=== PATIENT | female | born 1935 | race Caucasian/White ===

== ENCOUNTER 2018-05-21 20:15 | Inpatient (IN) | payer OTHER ==
[2018-05-21] MEDS ORDERED: ONDANSETRON 4 MG/2 ML VIAL IVP ONE (20:37)
[2018-05-21] MEDS ORDERED: NS 1,000 ML IV ONE (20:37)
--- NOTE | 2018-05-21 21:04 | EDPHY ---
H & P Stated Complaint: pt fell 3 times due to weakness and now vomiting Time Seen by Provider: 05/21/18 20:31 HPI/ROS: CHIEF COMPLAINT: Weakness, fall, vomiting HISTORY OF PRESENT ILLNESS: The patient is an 82-year-old female with a history of Alzheimer's disease and multiple abdominal surgeries as well as seizure disorder and asthma. She complained last night that her head was buzzing but as soon as her daughter took her home and she had some food she felt better. However today she has felt weak and she fell backwards while walking down the ramp at home. They are not sure if she hit her head or not but since that she has vomited 3 times. She fell 1 other time out of her chair to the ground. Patient denies any pain or injury to her extremities or torso. She is retching here in the room. Daughter states that she has also had multiple urine infections in the past. The patient has been afebrile. No coughing or shortness of breath. She denies chest pain. She has been incontinent of urine as well. No neck pain. No headache Severity: Moderate Modifying factors: None REVIEW OF SYSTEMS: Constitutional: denies: chills, fever, recent illness, recent injury EENTM: denies: blurred vision, double vision, nose congestion Respiratory: denies: cough, shortness of breath Cardiac: denies: chest pain, irregular heart rate, lightheadedness, palpitations Gastrointestinal/Abdominal: See HPI Genitourinary: denies: dysuria, frequency, hematuria, pain Musculoskeletal: denies: joint pain, muscle pain Skin: denies: lesions, rash, jaundice, bruising Neurological: Generalized weakness, denies: headache, numbness, paresthesia, tingling, dizziness, weakness Hematologic/Lymphatic: denies: blood clots, easy bleeding, easy bruising Immunologic/allergic: denies: HIV/AIDS, transplant 10 systems reviewed and negative except as noted EXAM: GENERAL: Fatigue, moderate distress, retching, overweight HEAD: Atraumatic, normocephalic. EYES: Pupils equal round and reactive to light, extraocular movements intact, sclera anicteric, conjunctiva are normal. ENT: TMs normal, nares patent, oropharynx clear without exudates. Moist mucous membranes. NECK: Normal range of motion, supple without lymphadenopathy or JVD. LUNGS: Breath sounds clear to auscultation bilaterally and equal. No wheezes rales or rhonchi. HEART: Regular rate and rhythm without murmurs, rubs or gallops. ABDOMEN: Soft, nontender, normoactive bowel sounds. No guarding, no rebound. No masses appreciated. BACK: No CVA tenderness, no spinal tenderness, step-offs or deformities EXTREMITIES: Normal range of motion, no pitting or edema. No clubbing or cyanosis. NEUROLOGICAL: Cranial nerves II through XII grossly intact. Normal speech, normal gait. 5/5 strength, normal movement in all extremities, normal sensation , normal reflexes PSYCH: Normal mood, normal affect. SKIN: Warm, dry, normal turgor, no visible rashes or lesions. Source: Patient Exam Limitations: No limitations - Personal History Current Tetanus/Diphtheria Vaccine: Unsure Current Tetanus Diphtheria and Acellular Pertussis (TDAP): Unsure - Medical/Surgical History Hx Asthma: Yes Hx Chronic Respiratory Disease: No Hx Diabetes: Yes Hx Cardiac Disease: No Hx Renal Disease: No Hx Cirrhosis: No Hx Alcoholism: No Hx HIV/AIDS: No Hx Splenectomy or Spleen Trauma: No Other PMH: ALZHEIMERS, multiple abdominal surgeries, LT SHOULDER INJURY, HYST. SZ. THYROID. HTN - Family History Significant Family History: No pertinent family hx - Social History Smoking Status: Never smoked Alcohol Use: Sober Constitutional: Initial Vital Signs Temperature (C) 36.5 C 05/21/18 20:16 Heart Rate 86 05/21/18 20:16 Respiratory Rate 18 05/21/18 20:16 Blood Pressure 166/120 H 05/21/18 20:16 O2 Sat (%) 94 05/21/18 20:16 O2 Delivery Mode Room Air,Nasal Cannula O2 (L/minute) 1 Allergies/Adverse Reactions: No Known Allergies Allergy (Verified 05/21/18 20:20) Home Medications: Medication Instructions Recorded Albuterol Sulfate [Ventolin Hfa] 2 puffs IH Q4 PRN 05/22/18 Albuterol [Proventil Neb] 3 ml IH QID PRN 05/22/18 Aspirin EC [Aspirin EC 81 mg (*)] 81 mg PO DAILY 05/22/18 Donepezil HCl [Aricept] 20 mg PO HS 05/22/18 Furosemide [Lasix 40 MG (*)] 40 mg PO DAILY 05/22/18 Lacosamide [Vimpat] 150 mg PO BID 05/22/18 Levothyroxine [Synthroid 75 mcg 75 mcg PO DAILY06 05/22/18 (*)] Losartan Potassium [Cozaar 50 mg 50 mg PO DAILY 05/22/18 (*)] Memantine HCl [Namenda 10 mg] 10 mg PO BID 05/22/18 Montelukast Sodium [Singulair 10 10 mg PO HS 05/22/18 mg (*)] [place]-3 Fatty Acids [Fish Oil 1000 1,000 mg PO DAILY 05/22/18 mg (*)] Simvastatin 40 mg PO HS 05/22/18 Vitamin B Complex [Vitamin B 1 each PO DAILY 05/22/18 Complex (OTC)] glipiZIDE [Glucotrol] 2.5 mg PO BIDMEAL 05/22/18 levETIRAcetam [Keppra 500 mg (*)] 1,500 mg PO BID 05/22/18 Medical Decision Making - Diagnostics EKG Interpretation: An EKG obtained and was read and documented in trace view. Please see trace view for full reading and report. Sinus rhythm left bundle branch block, no acute ischemic changes Imaging: Discussed imaging studies w/ call center representative Radiologist ED Course/Re-evaluation: Patient is feeling well. CT scan is reassuring. She does have a slightly elevated white count. She tried to urinate could not despite having full bladder on CT scan. We will do an in-and out catheter. 10:50 p.m. discussed the case with Dr. Parks who will admit to the medical service. Urinalysis pending but dip appears normal 11:10 p.m. the patient does have a few white cells in her urine. This could be responsible for her weakness and vomiting. I will start her on Rocephin. Differential Diagnosis: Partial list of the Differential diagnosis considered include but were not limited to; urinary tract infection, dehydration, gastritis, head injury and although unlikely based on the history and physical exam, I also considered obstruction, ischemia her house, acute coronary disease. - Data Points Laboratory Results: Laboratory Results 05/22/18 05:25 05/22/18 05:25 05/22/18 05/22/18 05/22/18 08:16 05:25 05:25 WBC 9.09 10^3/uL 10^3/uL (3.80-9.50) RBC 3.87 10^6/uL L 10^6/uL (4.18-5.33) Hgb 12.2 g/dL L g/dL (12.6-16.3) Hct 36.4 % L % (38.0-47.0) MCV 94.1 fL fL (81.5-99.8) MCH 31.5 pg pg (27.9-34.1) MCHC 33.5 g/dL g/dL (32.4-36.7) RDW 12.9 % % (11.5-15.2) Plt Count 207 10^3/uL 10^3/uL (150-400) MPV 9.1 fL fL (8.7-11.7) Neut % (Auto) 56.6 % % (39.3-74.2) Lymph % (Auto) 31.8 % % (15.0-45.0) [place] % (Auto) 9.6 % % (4.5-13.0) Eos % (Auto) 1.0 % % (0.6-7.6) Baso % (Auto) 0.4 % % (0.3-1.7) Nucleat RBC Rel Count 0.0 % % (0.0-0.2) Absolute Neuts (auto) 5.15 10^3/uL 10^3/uL (1.70-6.50) Absolute Lymphs (auto) 2.89 10^3/uL 10^3/uL (1.00-3.00) Absolute Monos (auto) 0.87 10^3/uL H 10^3/uL (0.30-0.80) Absolute Eos (auto) 0.09 10^3/uL 10^3/uL (0.03-0.40) Absolute Basos (auto) 0.04 10^3/uL 10^3/uL (0.02-0.10) Absolute Nucleated RBC 0.00 10^3/uL 10^3/uL (0-0.01) Immature Gran % 0.6 % % (0.0-1.1) Immature Gran # 0.05 10^3/uL 10^3/uL (0.00-0.10) Sodium 140 mEq/L mEq/L (135-145) Potassium 3.7 mEq/L mEq/L (3.3-5.0) Chloride 102 mEq/L mEq/L (97-110) Carbon Dioxide 27 mEq/l mEq/l (22-31) Anion Gap 11 mEq/L mEq/L (8-16) BUN 15 mg/dL mg/dL (7-23) Creatinine 0.9 mg/dL mg/dL (0.6-1.0) Estimated GFR 60 Glucose 129 mg/dL H mg/dL (70-100) POC Glucose 90 mg/dL mg/dL (70-100) Calcium 8.3 mg/dL L mg/dL (8.5-10.4) Microbiology Results: MICROBIOLOGY 05/21/18 23:59 Urine,Clean Catch Urine Culture - Preliminary Medications Given: Acetaminophen (Tylenol) 650 mg PO Q4HRS PRN PRN Reason: Pain, Mild/Fever, Can Take PO Stop: 11/17/18 22:49 Last Admin: 05/22/18 14:42 Dose: 650 mg Enoxaparin Sodium (Lovenox) 40 mg SC DAILY CHRIST Stop: 11/18/18 08:59 Last Admin: 05/22/18 09:01 Dose: 40 mg Potassium Chloride/Sodium Chloride (Ns W/ 20 Kcl/L) 1,000 mls @ 100 mls/hr IV CONT CHRIST Stop: 11/17/18 22:59 Last Admin: 05/22/18 05:58 Dose: 1,000 mls Ceftriaxone Sodium/Dextrose (Rocephin 1 Gm (Premix)) 50 mls @ 100 mls/hr IV DAILY CHRIST PRN Reason: Protocol Stop: 06/21/18 08:59 Last Admin: 05/22/18 09:20 Dose: 50 mls Insulin Human Lispro (Humalog Lispro) 0 unit SC TIDMEAL CHRIST PRN Reason: Protocol Stop: 11/18/18 07:59 Last Admin: 05/22/18 14:12 Dose: 2 units Miscellaneous Medication (Icy Hot Lidocaine/Menthol 4%/1% Patch) 1 patch TD DAILY CHRIST Stop: 11/18/18 11:59 Last Admin: 05/22/18 14:14 Dose: 1 patch Discontinued Medications Sodium Chloride (Ns) 1,000 mls @ 0 mls/hr IV EDNOW ONE; Wide Open PRN Reason: Protocol Stop: 05/21/18 20:38 Last Admin: 05/21/18 21:09 Dose: 1,000 mls Ceftriaxone Sodium/Dextrose (Rocephin 1 Gm (Premix)) 50 mls @ 100 mls/hr IV EDNOW ONE PRN Reason: Protocol Stop: 05/21/18 23:37 Last Admin: 05/21/18 23:41 Dose: 50 mls Ondansetron HCl (Zofran) 4 mg IVP EDNOW ONE Stop: 05/21/18 20:38 Last Admin: 05/21/18 21:09 Dose: 4 mg Point of Care Test Results: Chemistry 05/22/18 05/21/18 08:16 21:14 POC Glucose 90 mg/dL mg/dL (70-100) POC Troponin I 0.02 ng/mL ng/mL (0.00-0.08) Departure - Departure Disposition: [facility] Inpatient Acute Clinical Impression: Weakness Vomiting Qualifiers: Vomiting type: unspecified Vomiting Intractability: non-intractable Nausea presence: without nausea Qualified Code(s): R11.11 - Vomiting without nausea Condition: Fair
--- NOTE | 2018-05-21 21:06 | CPEKG ---
Test Reason : OPEN Blood Pressure : / mmHG Vent. Rate : 077 BPM Atrial Rate : 077 BPM P-R Int : 236 ms QRS Dur : 136 ms QT Int : 464 ms P-R-T Axes : 053 -62 071 degrees QTc Int : 526 ms Sinus rhythm Prolonged NE interval Left bundle branch block Confirmed by Dashawn Santana ([id number]) on 05/21/2018 9:05:44 PM Referred By: Confirmed By:Dashawn Santana
[2018-05-21 21:24] LABS: PLATELET COUNT 236 10^3/uL (150-400)
[2018-05-21] MEDS ORDERED: IOPAMIDOL (ISOVUE-300) 100 ML BTL ONE (21:53)
[2018-05-21] MEDS ORDERED: ONDANSETRON 4 MG/2 ML VIAL IVP PRN (22:50)
[2018-05-21] MEDS ORDERED: ONDANSETRON DISINTEGRATING 4 MG TAB PO PRN (22:50)
--- NOTE | 2018-05-22 01:14 | PDGENHP ---
History and Physical - Chief Complaint Fall - History of Present Illness 82 yo F w/ hx of dementia, DM, and numerous UTI's presents after a fall. History is mostly obtained from daughter in law as patient has poor memory and does not recall much. Apparently patient felt mildly weak and dizzy yesterday. She had to be picked up from her day activities. Then, today, after walking down the ramp from her house she suffered a fall and hit her head. After this she was drowsy and vomited several times. After this she was brought to the ED for evaluation. In the ED evaluation was reassuring with normal CT Head and CT abdomen without acute findings. UA is mildly abnormal. Daughter has noted urinary frequency over the last day as well. The patient herself denies any symptoms aside from pain on the R side of her abdomen where she hit herself during the fall. She is A&Ox1 on my evaluation, which daughter in law states is baseline. Case discussed with ED physician Dr. Santana; records reviewed in EMR. History Information - Allergies/Home Medication List Allergies/Adverse Reactions: No Known Allergies Allergy (Verified 05/21/18 20:20) Home Medications: Actos 12/24/14 [Last Taken Unknown] Aricept 12/24/14 [Last Taken Unknown] Furosemide 12/24/14 [Last Taken Unknown] Glipizide 12/24/14 [Last Taken Unknown] LEVETIRACETAM 12/24/14 [Last Taken Unknown] Levothyroxine 12/24/14 [Last Taken Unknown] Memantine HCl 12/24/14 [Last Taken Unknown] Simvastatin 12/24/14 [Last Taken Unknown] Vanpack For Seizure Disorder 12/24/14 [Last Taken Unknown] I have personally reviewed and updated: family history, medical history - Past Medical History dementia, diabetes type 2 - Surgical History Reports: cholecystectomy, hysterectomy, hernia repair - Family History Positive for: diabetes type II, CAD Additional family history: MS - Social History Smoking Status: Never smoked Review of Systems Review of Systems: ROS: 10pt was reviewed & negative except for what was stated in HPI & below Physical Exam Physical Exam: Temp Pulse Resp BP Pulse Ox 36.7 C 84 18 129/71 H 97 05/22/18 00:45 05/22/18 00:45 05/22/18 00:45 05/22/18 00:45 05/22/18 00:45 O2 (L/minute) 2 Constitutional: no apparent distress, obese Eyes: PERRL, EOMI Ears, Nose, Mouth, Throat: moist mucous membranes, no oral mucosal ulcers Cardiovascular: regular rate and rhythym, no murmur, rub, or gallop Respiratory: no respiratory distress, clear to auscultation Gastrointestinal: normoactive bowel sounds, tenderness (Right flank) Skin: warm, normal color Musculoskeletal: full muscle strength, no muscle tenderness Neurologic: CN II-XII Intact, other (A&Ox1 (person only)) Psychiatric: interacting appropriately, not anxious Lab Data & Imaging Review 05/21/18 21:09 05/21/18 21:09 WBC 13.71 10^3/uL (3.80-9.50) H 05/21/18 21:09 RBC 4.67 10^6/uL (4.18-5.33) 05/21/18 21:09 Hgb 14.6 g/dL (12.6-16.3) 05/21/18 21:09 Hct 43.4 % (38.0-47.0) 05/21/18 21:09 MCV 92.9 fL (81.5-99.8) 05/21/18 21:09 MCH 31.3 pg (27.9-34.1) 05/21/18 21:09 MCHC 33.6 g/dL (32.4-36.7) 05/21/18 21:09 RDW 12.8 % (11.5-15.2) 05/21/18 21:09 Plt Count 236 10^3/uL (150-400) 05/21/18 21:09 MPV 9.2 fL (8.7-11.7) 05/21/18 21:09 Neut % (Auto) 76.3 % (39.3-74.2) H 05/21/18 21:09 Lymph % (Auto) 15.7 % (15.0-45.0) 05/21/18 21:09 [place] % (Auto) 6.3 % (4.5-13.0) 05/21/18 21:09 Eos % (Auto) 0.4 % (0.6-7.6) L 05/21/18 21:09 Baso % (Auto) 0.4 % (0.3-1.7) 05/21/18 21:09 Nucleat RBC Rel Count 0.0 % (0.0-0.2) 05/21/18 21:09 Absolute Neuts (auto) 10.45 10^3/uL (1.70-6.50) H 05/21/18 21:09 Absolute Lymphs (auto) 2.15 10^3/uL (1.00-3.00) 05/21/18 21:09 Absolute Monos (auto) 0.87 10^3/uL (0.30-0.80) H 05/21/18 21:09 Absolute Eos (auto) 0.06 10^3/uL (0.03-0.40) 05/21/18 21:09 Absolute Basos (auto) 0.05 10^3/uL (0.02-0.10) 05/21/18 21:09 Absolute Nucleated RBC 0.00 10^3/uL (0-0.01) 05/21/18 21:09 Immature Gran % 0.9 % (0.0-1.1) 05/21/18 21:09 Immature Gran # 0.13 10^3/uL (0.00-0.10) H 05/21/18 21:09 Sodium 135 mEq/L (135-145) 05/21/18 21:09 Potassium 3.6 mEq/L (3.3-5.0) 05/21/18 21:09 Chloride 96 mEq/L (97-110) L 05/21/18 21:09 Carbon Dioxide 27 mEq/l (22-31) 05/21/18 21:09 Anion Gap 12 mEq/L (8-16) 05/21/18 21:09 BUN 16 mg/dL (7-23) 05/21/18 21:09 Creatinine 0.9 mg/dL (0.6-1.0) 05/21/18 21:09 Estimated GFR 60 05/21/18 21:09 Glucose 193 mg/dL (70-100) H 05/21/18 21:09 Calcium 9.3 mg/dL (8.5-10.4) 05/21/18 21:09 Total Bilirubin 0.4 mg/dL (0.1-1.4) 05/21/18 21:09 Conjugated Bilirubin 0.1 mg/dL (0.0-0.5) 05/21/18 21:09 Unconjugated Bilirubin 0.3 mg/dL (0.0-1.1) 05/21/18 21:09 AST 25 IU/L (14-46) 05/21/18 21:09 ALT 31 IU/L (9-52) 05/21/18 21:09 Alkaline Phosphatase 114 IU/L (38-126) 05/21/18 21:09 POC Troponin I 0.02 ng/mL (0.00-0.08) 05/21/18 21:14 Total Protein 7.2 g/dL (6.3-8.2) 05/21/18 21:09 Albumin 4.1 g/dL (3.5-5.0) 05/21/18 21:09 Lipase 166 IU/L (23-300) 05/21/18 21:09 Urine Color YELLOW 05/21/18 22:43 Urine Appearance HAZY 05/21/18 22:43 Urine pH 5.0 (5.0-7.5) 05/21/18 22:43 Ur Specific [place] 1.018 (1.002-1.030) 05/21/18 22:43 Urine Protein 2+ (NEGATIVE) H 05/21/18 22:43 Urine Ketones TRACE (NEGATIVE) H 05/21/18 22:43 Urine Blood NEGATIVE (NEGATIVE) 05/21/18 22:43 Urine Nitrate NEGATIVE (NEGATIVE) 05/21/18 22:43 Urine Bilirubin NEGATIVE (NEGATIVE) 05/21/18 22:43 Urine Urobilinogen NEGATIVE EU (0.2-1.0) 05/21/18 22:43 Ur Leukocyte Esterase 1+ (NEGATIVE) H 05/21/18 22:43 Urine RBC 1-3 /hpf (0-3) 05/21/18 22:43 Urine WBC 10-15 /hpf (0-3) H 05/21/18 22:43 Ur Epithelial Cells TRACE /lpf (NONE-1+) 05/21/18 22:43 Urine Bacteria TRACE /hpf (NONE SEEN) H 05/21/18 22:43 Hyaline Casts 5-15 /lpf (0-1) 05/21/18 22:43 Urine Mucus TRACE /lpf (NONE-1+) 05/21/18 22:43 Urine Glucose NEGATIVE (NEGATIVE) 05/21/18 22:43 Imaging Review: Imaging Impressions Abdomen CT 05/21/18 20:38 Impression: 1. No evidence of abdominopelvic inflammatory mass. 2. Dilated common bile duct measuring 1.1 cm without radiopaque stone or mass. This may be related to patient's age and history of cholecystectomy, clinical and laboratory correlation is recommended. 3. Thiago hepatis and retroperitoneal lymphadenopathy is likely reactive in nature, however malignancy cannot be radiographically excluded. Follow-up CT scanning with contrast in [address] Santana was notified of these findings by telephone at 10:30 on 05/21/[address] 05/21/18 20:38 Impression: No acute intracranial hemorrhage or skull fracture. Dr. Santana was notified of these findings by telephone at 10:30 PM on 05/21/2018 Assessment & Plan Assessment: 82 yo F w/ hx of dementia and DM presents after a fall. Plan: 1. Fall - Preceded by one day of dizziness and poor PO intake. Patient states she hit her head but CT Head revealed no acute findings. Dehydration and possible UTI may have been contributing factors. - Admit for observation - mIVF overnight - PT/OT evaluations - Address UTI as below 2. UTI - Daughter describes urinary frequency despite poor PO intake. UA is only mildly abnormal but patient does have history of numerous UTI's. WBC is elevated at 13.7. - CTX 1 g qD for now - Urine culture pending 3. DM - I do not have access to a current medication list at this time; patient and daughter do not know her medications. BG 193 on admission. - SSI for now pending med reconciliation - BG ACHS; D50 IV PRN for hypoglycemia 4. Dementia - Patient A&Ox1 on my evaluation, daughter states this is baseline. - Avoid centrally acting medications as able Diet - Regular Code - Full Ppx - LMWH Dispo - Admit under observation status
[2018-05-22] MEDS ORDERED: D50W 25 GM/50 ML VIAL IVP PRN (01:21)
[2018-05-22 05:42] LABS: PLATELET COUNT 207 10^3/uL (150-400)
[2018-05-22] MEDS: NS W/ 20 KCl/L 1,000 ML IV SCH ×2 (05:58→16:43)
[2018-05-22] MEDS: ACETAMINOPHEN 325 MG TAB PO PRN ×2 (09:00→14:42)
[2018-05-22] MEDS: ENOXAPARIN 40 MG/0.4 ML SYR SC SCH (09:01)
[2018-05-22] MEDS: INSULIN LISPRO 100 UNIT/ML SC SCH ×3 (09:20→18:14)
[2018-05-22] MEDS ORDERED: ALBUTEROL 3 ML DEYVIAL IH PRN (10:16)
[2018-05-22] MEDS ORDERED: ALBUTEROL 60 PUFFS/8 GM MDI IH PRN ×2 (10:30)
--- NOTE | 2018-05-22 11:26 | HOSPPROG ---
Hospitalist Progress Note Assessment/Plan: 82 yo F w/ hx of dementia and DM presents after a fall. First encounter, chart reviewed. Plan: # Fall - Preceded by one day of dizziness and poor PO intake. - Patient states she hit her head but CT Head revealed no acute findings. #Hypotension -multifactorial -cont to hold meds -IVF # Dehydration -poor PO intake while on lasix and cozaar -hold meds -IVF #Weakness - PT/OT evaluations # UTI - Daughter describes urinary frequency despite poor PO intake. - UA is only mildly abnormal but patient does have history of numerous UTI's. - WBC is elevated at 13.7. - CTX 1 g qD for now - Urine culture pending # DM -home meds - SSI - BG ACHS; D50 IV PRN for hypoglycemia # Dementia - Patient A&Ox2, baseline - Avoid centrally acting medications as able Diet - Regular Code - Full Ppx - LMWH Dispo -change to inpatient status pt needs further evaluation given continued hypotension and weakness Subjective: Feeling fine. Still dizzy. Having some weakness and no appetite. Objective: Vital Signs Temp Pulse Resp BP Pulse Ox 36.7 C 72 12 87/45 L 92 05/22/18 08:00 05/22/18 09:19 05/22/18 08:00 05/22/18 08:00 05/22/18 09:19 Laboratory Results 05/22/18 05:25 05/22/18 05:25 05/21/18 05/22/18 05/23/18 05:59 05:59 05:59 Intake Total 1000 Balance 1000 - Physical Exam Constitutional: no apparent distress, appears nourished, not in pain Eyes: PERRL, anicteric sclera, EOMI Ears, Nose, Mouth, Throat: moist mucous membranes, hearing normal, ears appear normal Cardiovascular: regular rate and rhythym, No JVD, No edema Respiratory: no respiratory distress, no rales or rhonchi, reduced air movement Gastrointestinal: normoactive bowel sounds, No tenderness, No ascites Skin: warm, normal color, No mottled Musculoskeletal: normal joint ROM, no joint effusions, generalized weakness Psychiatric: not anxious, poor insight, poor judgement, poor memory ICD10 Worksheet Patient Problems: Problems Problem Status Onset Weakness Acute Vomiting Acute
--- NOTE | 2018-05-22 12:30 | ASMTCMCOM ---
CM Note CM Note Notes: 05/22/2018 Case Management Note Pt admitted for weakness and vomiting after a fall at home. Pt has history of dementia, DM, UTI, CAD. Met w/pt to discuss d/c needs. Pt had difficulty following conversation d/t dementia, phone call to son Salvador. Mentioned BARBOZA to Salvador, did not have pt sign d/t dementia status. Salvador and his Kaylin live with pt in pt home. Salvador [phone]. Daughter in law Kaylin [phone]. Salvador and Kaylin are main caretakers of pt, driving her to appointments and preparing meals. Pt has previous stay at [facility]. Pt also had home care in the past but Salvador was unable to recall provider name. PCP is Dr. Peggy Miller in [place]. Pt has appointment later in the week for her annual physical. Case Management d/c poc: to be determined. Awaiting PT OT michelet for recommendations. Case Management to follow. Date Signed: 05/22/2018 12:29 PM Electronically Signed By:Ayanna Sheikh RN
--- NOTE | 2018-05-22 13:00 | PDMN ---
Medical Necessity Medical necessity: Change to IP, as of 05/22/18, per [employer]GER & MCG [id number]; los >2 mn for ongoing management of dehydration w/hypotension, dizziness, weakness, shoulder pain & possible UTI s/p fall; requiring further monitoring, IVFs, IV abx, pain managament & therapies; comorbid advanced age, dementia, UTIs, diabetes
[2018-05-22] MEDS: LIDOCAINE 4%/MENTHOL 1% PATCH TD SCH (14:14)
[2018-05-22] MEDS ORDERED: glipiZIDE 5 MG TAB PO SCH (18:00)
[2018-05-22] MEDS: glipiZIDE 5 MG TAB PO SCH (18:13)
[2018-05-22] MEDS: LACOSAMIDE 50 MG TAB PO SCH (20:24)
[2018-05-22] MEDS: MEMANTINE HCL 5 MG TAB PO SCH (20:24)
[2018-05-22] MEDS: levETIRAcetam 500 MG TAB PO SCH (20:25)
[2018-05-22] MEDS ORDERED: MONTELUKAST SODIUM 10 MG TAB PO SCH (21:00)
[2018-05-22] MEDS ORDERED: DONEPEZIL HCL 5 MG TAB PO SCH (21:00)
[2018-05-22] MEDS ORDERED: ATORVASTATIN CALCIUM 20 MG TAB PO SCH (21:00)
[2018-05-22] MEDS ORDERED: PATCH REMOVAL 1 EA PATCH TD SCH (21:00)
[2018-05-23] MEDS ORDERED: LEVOTHYROXINE 75 MCG TAB PO SCH (06:00)
[2018-05-23] MEDS ORDERED: VITAMIN B COMPLEX 1 EA CAP/TAB PO SCH (09:00)
[2018-05-23] MEDS ORDERED: OMEGA-3 FATTY ACIDS 1,000 MG CAP PO SCH (09:00)
[2018-05-23] MEDS ORDERED: ASPIRIN EC 81 MG TAB PO SCH (09:00)
--- NOTE | 2018-05-23 09:02 | GCON ---
I was asked to see and evaluate this patient for a right clavicle fracture. I have not yet seen and evaluated her but I have evaluated the images and reviewed her chart, but based on the chart, the pat ient's pain, and the ground level fall resulting in right shoulder pain. X-rays demonstrate a right distal clavicle fracture. I have reviewed the x-rays. They demonstrate a very distal clavicle fract ure with minimal displacement. IMPRESSION: Right clavicle fracture. ASSESSMENT AND PLAN: This fracture pattern is nonoperative. I will personally see and evaluate this patient to ensure she has no neurological deficits. From my perspective, she can be weightbearing a s tolerated without restrictions on that right arm. She may use a sling for comfort, but she should be discouraged from using it full-time as it may lead to frozen shoulder. She should have physical t herapy and occupational therapy while in the hospital. I would like to see the patient in 1-2 weeks after discharge in my office, where I can follow her with serial x-rays. Again, she should be encour aged to use that right arm unless it is quite painful for her. The sling would only be for comfort. Please do not hesitate to contact me with any further questions or concerns. My cell phone can be candi kramer, . /[id number]/MODL
[2018-05-23] MEDS: INSULIN LISPRO 100 UNIT/ML SC SCH ×2 (09:29→12:40)
[2018-05-23] MEDS: glipiZIDE 5 MG TAB PO SCH (09:29)
[2018-05-23] MEDS: MEMANTINE HCL 5 MG TAB PO SCH (09:30)
[2018-05-23] MEDS: LACOSAMIDE 50 MG TAB PO SCH (09:31)
[2018-05-23] MEDS: levETIRAcetam 500 MG TAB PO SCH (09:32)
[2018-05-23] MEDS: ENOXAPARIN 40 MG/0.4 ML SYR SC SCH ×2 (09:37→11:34)
[2018-05-23] MEDS: LIDOCAINE 4%/MENTHOL 1% PATCH TD SCH ×2 (09:38→11:33)
[2018-05-23] MEDS: ACETAMINOPHEN 325 MG TAB PO PRN ×2 (09:39→13:29)
--- NOTE | 2018-05-23 10:28 | PDIAF ---
- Diagnosis Diagnosis: fall Code Status: Full Code - Medication Management Discharge Medications: Medications to Continue on Transfer Albuterol Sulfate [Ventolin Hfa] 2 puffs IH Q4 PRN 05/22/18 [Last Taken Unknown] Albuterol [Proventil Neb] 3 ml IH QID PRN 05/22/18 [Last Taken Unknown] Aspirin EC [Aspirin EC 81 mg (*)] 81 mg PO DAILY 05/22/18 [Last Taken Unknown] Donepezil HCl [Aricept] 20 mg PO HS 05/22/18 [Last Taken Unknown] Lacosamide [Vimpat] 150 mg PO BID 05/22/18 [Last Taken Unknown] Levothyroxine [Synthroid 75 mcg (*)] 75 mcg PO DAILY06 05/22/18 [Last Taken Unknown] Memantine HCl [Namenda 10 mg] 10 mg PO BID 05/22/18 [Last Taken Unknown] Montelukast Sodium [Singulair 10 mg (*)] 10 mg PO HS 05/22/18 [Last Taken Unknown] [place]-3 Fatty Acids [Fish Oil 1000 mg (*)] 1,000 mg PO DAILY 05/22/18 [Last Taken Unknown] Simvastatin 40 mg PO HS 05/22/18 [Last Taken Unknown] Vitamin B Complex [Vitamin B Complex (OTC)] 1 each PO DAILY 05/22/18 [Last Taken Unknown] glipiZIDE [Glucotrol 5 mg] 2.5 mg PO BIDMEAL 05/22/18 [Last Taken Unknown] levETIRAcetam [Keppra 500 mg (*)] 1,500 mg PO BID 05/22/18 [Last Taken Unknown] Acetaminophen [Tylenol 325mg (*)] 650 mg PO Q4HRS PRN tab 05/23/18 [Last Taken Unknown] Lidocaine 4%/Menthol 1% [Icy Hot Lidocaine/Menthol 4%/1% Patch (*)] 1 patch TD DAILY patch 05/23/18 [Last Taken Unknown] Patch Removal 1 ea TD DAILY21 patch 05/23/18 [Last Taken Unknown] Discharge Medications: Refer to the Discharge Home Medication list for PRN reason. PICC Care - Routine: N/A - Orders Services needed: Home Care, Physical Therapy, Occupational Therapy Home Care Face to Face: I certify that this patient was under my care and that I had the required [id number] encounter meeting the encounter requirements on the discharge day. My findings support the fact that the patient is homebound as defined in Home Care Face to Face Continued: CMS Chapter 7 Medicare Benefits Manual 30.1.1 , The condition of the patient is such that there exists a normal inability to leave home and consequently, leaving home would require a considerable and taxing effort. Diet Recommendation: no restrictions on diet Additional Instructions: WBAT RUE Sling for comfort only, but discouraged for full-time use Patient should be encouraged to use the right arm to avoid adhesive capsulitis Patient should f/u in my office in 1-[address] Gannon office number for appt: [phone] [facility] - Follow Up Care Current Providers and Referrals: Peggy Hoover [Primary Care Provider] - As per Instructions Camilo Gannon MD [Medical Doctor] -
--- NOTE | 2018-05-23 11:46 | ASDISCHSUM ---
Discharge Information Plan Status:Home with Home Health Medically Cleared to Leave:05/23/2018 Discharge Date:05/23/2018 CM D/C Disposition: ADT D/C Disposition:Home Health Service Projected Discharge Date:05/23/2018 11:00 AM Transportation at D/C: Discharge Delay Reason: Follow-Up Date:05/23/2018 11:00 AM Discharge Slot: Final Diagnosis: Placement Information Referral Type:*Home Health Care Services Referral ID:[id number] Provider Name:[facility] (formerly [facility]) Address 1:[address] [address] Address 2: City:[place] Selection Factors: State:[place] Patient Contact Information Contact Name:DOMINIK Relationship:Other Address:[address] [address] City:[place] Phone: State/Zip Code:[place] [address] Email: Financial Information Financial Class:Medicare Primary Plan Desc:MEDICARE OUTPATIENT Primary Plan Number:[id number] Secondary Plan Desc:[facility] Secondary Plan Number:[id number] Assessment Information LACE LACE Length of stay for Answers: 4-6 days current admission Acuity / Level of Answers: Yes Care: Did the patient have an inpatient admission? Comorbidities - select Answers: Coronary Artery Disease all that apply Dementia Diabetes (uncontrolled or controlled) Other Notes: h/o seizures, HTN, thyroid # of Emergency department Answers: 1-2 visits in the last 6 months Score: 15 Date Signed: 05/23/2018 11:44 AM Electronically Signed By:EVANGELINA Kunz [facility] Progress Note CM Note CM Note Notes: 05/22/2018 Case Management Note Pt admitted for weakness and vomiting after a fall at home. Pt has history of dementia, DM, UTI, CAD. Met w/pt to discuss d/c needs. Pt had difficulty following conversation d/t dementia, phone call to son Salvador. Mentioned BARBOZA to Salvador, did not have pt sign d/t dementia status. Salvador and his Kaylin live with pt in pt home. Salvador [phone]. Daughter in law Kaylin [phone]. Salvador and Kaylin are main caretakers of pt, driving her to appointments and preparing meals. Pt has previous stay at [facility]. Pt also had home care in the past but Salvador was unable to recall provider name. PCP is Dr. Peggy Miller in [place]. Pt has appointment later in the week for her annual physical. Case Management d/c poc: to be determined. Awaiting PT REMI tafoya for recommendations. Case Management to follow. Date Signed: 05/22/2018 12:29 PM Electronically Signed By:Ayanna Sheikh RN Case Management Discharge Plan Note Case Management Discharge Discharge Order Complete? Answers: Yes Patient to Obtain Answers: via Family Medications Transportation Arranged Answers: Family/Friends EMTALA Complete Answers: No Case Management Transport Answers: No Form Complete Faxed Final Orders Answers: Yes Agency/Facility Transfer Answers: Yes Report Printed & Faxed to Receiving Agency Family Notified Answers: No Discharge Comments Notes: Pts case discussed w/ Katja Currie NP. Pt is being discharged today. CM spoke to pts sonSalvador regarding d/c POC. Salvador feels comfortable w/ having pt return home. PT is recommending HC. Salvador is agreeable to having HC services. Referral sent to [facility]. [facility] is able to accept. Salvador will be the primary person for contact. CM provided [facility] w/ this info. Salvador will be coming to pick pt up. CM available for changes. Plan: [facility]; PT, OT Date Signed: 05/23/2018 11:44 AM Electronically Signed By:EVANGELINA Kunz Intervention Information Intervention Type:BARBOZA-Not Delivered Date of Service:05/22/2018 12:30 PM Patient Type:Observation Staff Member:ALAINA Sheikh, [facility] Hours: Discipline: Severity: Comment:Did not have pt sign d/t dementia status. Mentioned obs status to son Salvador on the phone. Salvador did not have any questions.
[2018-05-23 12:19] VITALS: BP 149/78
--- NOTE | 2018-05-23 14:02 | PDCONSULT ---
Executive Vice President And Chief Financial Officer Note: I saw and evaluated the patient this morning. She offers no c/o aside from the right shoulder. She has ttp to the distal right clavicle. Grossly neuro intact about the RUE, limited by pain. skin intact, normal neurovascular exam. I explained the plan to the patient - encouraged use of the right arm, but to let pain be her goal. Limit use of the sling, full passive ROM of the Right shoulder at least TID. f/u with me in 1-2 wks. I will follow from afar at this point; if there are any additional active issues for this patient, please don't hesitate to contact me at [phone] Jagdeep
--- NOTE | 2018-05-23 14:49 | GDS ---
DISCHARGE DIAGNOSES: 1. Mechanical fall. 2. Hypotension. 3. Dehydration. 4. Weakness. 5. Urinary tract infection. 6. Diabetes mellitus. 7. Dementia. 8. Right clavicular fracture. STUDIES AND PROCEDURES DONE: 1. CT of the abdomen. 2. CT of the head. 3. Shoulder x-ray. CONSULTATIONS: Camilo Gannon MD, of orthopedics. PHYSICAL EXAM: GENERAL: The patient is alert. VITAL SIGNS: Afebrile at 36.7. Pulse is 64, respir atory rate 16. Blood pressure is 149/78. She is saturating 93% on room air. I have seen and evalua laura the patient on the day of discharge. HOSPITAL COURSE: The patient is an 82-year-old female who presented to the emergency room after suff ering a fall. She was evaluated and diagnosed with: 1. Mechanical fall. During this hospitalization, she received physical therapy, as well as occupati onal therapy. These will be continued at the time of disposition. 2. Right clavicular fracture. This is secondary to the patient's fall. She did receive a consultat ion from Orthopedics. It is recommended that the patient use her arm as much as possible. There is no surgical intervention to be performed. She will follow up with Dr. Gannon in the outpatient [facility]. 3. Hypotension. This is multifactorial. The patient's blood pressure medications including Lasix h ave been held during this hospitalization. Her blood pressure has responded well and she is no longe r hypotensive. She did receive a fair amount of IV fluid as well. 4. Dehydration. This is in the setting of poor oral intake while on Lasix. Her medications have be en held. She has been rehydrated with IV fluids. She is taking appropriate oral intake. 5. Weakness. PT, OT will be continued in the outpatient setting. 6. Questionable urinary tract infection. The patient's urinalysis demonstrates possibility of a uri nary tract infection. Her urine culture does not. Her antibiotics have been discontinued. 7. History of diabetes. The patient's home medications have been continued. 8. Dementia. The patient is at her baseline mentation. She is oriented to 1, sometimes 2. No inte rvention warranted. DISPOSITION: She will be discharged home with her son where she resides. DISCHARGE MEDICATIONS: Include Lidoderm patch for new medications. I have discontinued the patient' s Cozaar 50 mg daily and Lasix 40 mg daily prior to disposition. She may need further antihypertensi ve therapy in the future. However, currently these medications are causing her to be hypotensive wit h dizziness and weakness. I have spent greater than 35 minutes in the care, coordination, and management of this patient's disp osition. FOLLOWUP: With Dr. Gannon of orthopedics as well as Peggy Hoover, her primary care physician. Zenaida rausch will continue to have home physical therapy, occupational therapy, and home health care. /[id number]/MODL
== END 2018-05-23 13:41 | disposition home health service (06) | DRG 641 ==
LOC: F3E 05-22 00:33 → OBSVTOIN 05-22 11:27
PROVIDERS: ADMIT Student in an Organized Health Care Education/Training Program; ATTEND Internal Medicine
DX: E86.0 Dehydration (principal); R53.1 Weakness; I95.9 Hypotension, unspecified; S42.031A Displaced fracture of lateral end of right clavicle, initial encounter for closed fracture; E11.9 Type 2 diabetes mellitus without complications; F03.90 Unspecified dementia, unspecified severity, without behavioral disturbance, psychotic disturbance, mood disturbance, and anxiety; G30.9 Alzheimer's disease, unspecified; F02.80 Dementia in other diseases classified elsewhere, unspecified severity, without behavioral disturbance, psychotic disturbance, mood disturbance, and anxiety; G40.909 Epilepsy, unspecified, not intractable, without status epilepticus; W10.2XXA Fall (on)(from) incline, initial encounter; Y92.019 Unspecified place in single-family (private) house as the place of occurrence of the external cause; Z91.81 History of falling
CPT/HCPCS: 84484-PO; 96365; 97116-GP; 97161-GP; 97166-GO; 97530-GO; 97530-GP; G0378; G8978-GP-CJ; G8979-GP-CI; G8980-GP-CJ; G8987-GO-CJ; G8988-GO-CI; J0696; J1650; J1815; J2405; Q9967